=== PATIENT | male | born 1970 | race Caucasian/White ===

== ENCOUNTER → 2017-04-20 | Outpatient (CLI) | payer BC ==
[~2017-04-20] MED LIST: ADVAIR 100/501 E1 INH; ALBUTEROL0.09 MG/A2 IH; CLARITIN10 MG PO; MEDROL DOSEPAK4 MG PO; MEN'S MULTI-VI1 EACH PO; ZITHROMAX Z PA250 MG PO
[2017-04-20 12:57] LABS: HEMATOCRIT 47.2 % (42.0-52.0); HEMOGLOBIN 16.4 g/dl (14.0-18.0); MEAN CELL VOLUME 90.9 fl (80.0-94.0); MEAN CORPUSCULAR HGB 31.6 pg (27.0-31.0); MEAN CORPUSCULAR HGB CONC 34.7 g/dl (33.0-37.0); MEAN PLATELET VOLUME 9.3 fl (9.6-12.3); RED BLOOD COUNT 5.19 10*6/uL (4.50-5.90)
[2017-04-20 13:24] LABS: ALBUMIN 3.8 gm/dl (3.1-4.5); ALKALINE PHOSPHATASE 94 U/L (45-117); BUN 18 mg/dl (7-24); CHLORIDE 108 mmol/L (98-107); CHOLESTEROL 192 mg/dL (<200); CREATININE 1.06 mg/dL (0.70-1.30); HDL CHOLESTEROL 45 mg/dl (40-60); LDL CHOLESTEROL 127 mg/dL (9-159); POTASSIUM 4.5 mmol/L (3.5-5.1); SGOT/AST 25 IU/L (3-35); SGPT/ALT 60 U/L (12-78); SODIUM 142 mmol/L (136-145); TOTAL PROTEIN 7.1 gm/dL (6.4-8.2); TRIGLYCERIDES 100 mg/dl (<150); VLDL CHOLESTEROL 20 mg/dL (6-40)
[2017-04-22 06:35] LABS: TESTOSTERONE FREE, (DIRECT) 6.9 pg/mL (6.8-21.5)
== END | disposition home or self-care (01) ==
LOC: LAB 12:36
PROVIDERS: Family Medicine
DX: J45.909 Unspecified asthma, uncomplicated (principal); R03.0 Elevated blood-pressure reading, without diagnosis of hypertension; E78.00 Pure hypercholesterolemia, unspecified; R53.83 Other fatigue

== ENCOUNTER → 2018-06-19 | Outpatient (CLI) | payer BC ==
[2018-06-19 09:45] LABS: HEMATOCRIT 45.2 % (42.0-52.0); HEMOGLOBIN 15.5 g/dl (14.0-18.0); MEAN CORPUSCULAR HGB 31.9 pg (27.0-31.0); MEAN CORPUSCULAR HGB CONC 34.3 g/dl (33.0-37.0); MEAN PLATELET VOLUME 9.4 fl (9.6-12.3); RED BLOOD COUNT 4.86 10*6/uL (4.50-5.90); RED CELL DISTRI WIDTH 12.1 % (0-14.5); WHITE BLOOD COUNT 5.9 10*3/uL (4.8-10.8)
[2018-06-19 10:09] LABS: ALBUMIN 3.7 gm/dl (3.1-4.5); ALKALINE PHOSPHATASE 78 U/L (45-117); BUN 13 mg/dl (7-24); CHLORIDE 108 mmol/L (98-107); CHOLESTEROL 167 mg/dL (<200); CREATININE 0.95 mg/dL (0.70-1.30); HDL CHOLESTEROL 47 mg/dl (40-60); LDL CHOLESTEROL 103 mg/dL (9-159); POTASSIUM 4.3 mmol/L (3.5-5.1); SGOT/AST 17 IU/L (3-35); SGPT/ALT 33 U/L (12-78); SODIUM 140 mmol/L (136-145); TOTAL PROTEIN 6.9 gm/dL (6.4-8.2); TRIGLYCERIDES 84 mg/dl (<150); VLDL CHOLESTEROL 17 mg/dL (6-40)
== END | disposition home or self-care (01) ==
LOC: LAB 08:48
PROVIDERS: Family Medicine
DX: Z13.220 Encounter for screening for lipoid disorders (principal); E78.00 Pure hypercholesterolemia, unspecified

== ENCOUNTER → 2020-05-28 | Outpatient (CLI) | payer BC | END | disposition home or self-care (01) | LOC: COVID19 00:58 | PROVIDERS: ATTEND Family Medicine | DX: U07.1 COVID-19 (principal) ==